=== PATIENT | female | born 1955 | race Caucasian/White ===

== ENCOUNTER 2018-03-21 08:39 | Day surgery (SDC) | payer OTHER ==
[~2018-03-21 08:39] MED LIST: ACETAMINOPHEN 1,000 MG/100 ML BTL IV ONE; CEFAZOLIN 2 Gram 2 GM/50 ML BAG IVPB ONE
[2018-03-21] MEDS ORDERED: ONDANSETRON HCL IV 4 MG/2 ML VIAL IVP ONE (08:40)
[2018-03-21] MEDS ORDERED: MORPHINE SULFATE 4MG/ML PREFILLED SYRINGE IVP ONE (08:40)
[2018-03-21] MEDS ORDERED: SCOPOLAMINE 1 PATCH TDSY TD ONE (08:40)
[2018-03-21] MEDS ORDERED: SEVOFLURANE 250 ML INH ONE (08:40)
[2018-03-21] MEDS ORDERED: DEXAMETHASONE 4 MG/ML 1ML VIAL IVP ONE (08:40)
[2018-03-21] MEDS ORDERED: PROPOFOL 10 MG/ML VIAL IV ONE (08:40)
[2018-03-21] MEDS ORDERED: LIDOCAINE 2% MDV (20MG/ML) 20ML VIAL IV ONE (08:40)
[2018-03-21] MEDS ORDERED: BUPIVACAINE 0.5% W/EPI MPF 30 ML VIAL IVP ONE (08:40)
[2018-03-21] MEDS ORDERED: KETOROLAC 30 MG/ML VIAL IVP ONE (08:40)
[2018-03-21] MEDS ORDERED: METHYLPREDNISOLONE 40MG/VIAL IM ONE (08:40)
[2018-03-21 09:11] LABS: INR 2.9; PROTHROMBIN TIME (PATIENT) 31.4 SECONDS (9.5-12.1)
--- NOTE | 2018-03-22 07:48 | Operative Note ---
DATE: 03/21/2018. PREOPERATIVE DIAGNOSIS: INTERNAL DERANGEMENT OF THE RIGHT KNEE. POSTOPERATIVE DIAGNOSES: 1. DIFFUSE SYNOVITIS. 2. GRADE 3 CHONDROMALACIA PATELLA. 3. 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 4. COMPLEX SPLIT TEAR INVOLVING THE POSTERIOR HORN OF THE MEDIAL MENISCUS. 5. RADIAL SPLIT TEAR OF THE LATERAL HORN OF THE LATERAL MENISCUS. 2. SMALL GRADE 3 CHONDROMALACIA OF THE LATERAL FEMORAL CONDYLE. PROCEDURES: 1. RIGHT KNEE ARTHROSCOPY WITH PARTIAL MEDIAL AND LATERAL MENISCECTOMY. 2. RIGHT KNEE ARTHROSCOPY WITH COMPLETE SYNOVECTOMY. 3. RIGHT KNEE ARTHROSCOPY WITH CHONDROPLASTY OF THE PATELLA AND MEDIAL AND LATERAL COMPARTMENTS. STAFF SURGEON: Josr Bloom M.D. ANESTHESIA: General. PREPARATION: ChloraPrep. INDIVIDUAL CONSIDERATIONS: None. PROCEDURE: The patient was taken to the operating room and placed supine on the operating table. She had successful induction of a general anesthetic. Her right lower extremity was prepped and draped in the usual fashion. The patient had a superolateral inflow cannula placed. The skin had been infiltrated with 0.5% Marcaine with epinephrine prior. A blood-tinged effusion was drained, and the knee was inflated with normal saline. An inferomedial and an inferolateral portal were made in a similar fashion. The arthroscope was introduced through the inferolateral portal up into the pouch. The patellofemoral joint showed diffuse synovitis in the pouch and both gutters and grade 3 change in the patella. The patella was smoothed, and a synovectomy was performed in the pouch and both gutters medially. She had a complex flap tear involving the posterior horn of the medial meniscus. This was debrided back to a stable rim with basket forceps and a shaver. Posteriorly on the femoral condyle from 45 to 90 degrees there was a small, grade 3 change, and this was smoothed with a shaver. In the notch the cruciates were normal. Laterally she had a radial split tear involving the lateral horn of the lateral meniscus. This was debrided back to a stable rim with basket forceps and a shaver. Again, from 45 to 90 degrees there was some grade 3 change in the femoral condyle which was smoothed. The tibial plateau looked good. The popliteus tendon was normal. The knee was then irrigated out with saline to remove loose floating debris. The portals were closed with juan manuel, and 20 mL of 0.5% Marcaine with epinephrine along with 10 mg of morphine and 80 mg of Depo Medrol were injected into the knee. A sterile Bulkee compressive dressing was applied. The patient tolerated the procedures well. Needle and sponge counts were correct. Estimated blood loss was minimal. She was taken back to the Recovery in good condition. There were no complications. Job Number: [id number] MTDD
== END 2018-03-21 13:18 | disposition home or self-care (01) ==
LOC: SUR 08:39
PROVIDERS: ATTEND Orthopaedic Surgery
DX: S83.231A Complex tear of medial meniscus, current injury, right knee, initial encounter (principal); S83.281A Other tear of lateral meniscus, current injury, right knee, initial encounter; M22.41 Chondromalacia patellae, right knee; M94.261 Chondromalacia, right knee; M65.9 Synovitis and tenosynovitis, unspecified; I49.3 Ventricular premature depolarization; Z79.01 Long term (current) use of anticoagulants; I10 Essential (primary) hypertension
CPT/HCPCS: 29880; 29876; 01400; 85610; J1885; J2405; J0690; J2274; J1030